=== PATIENT | male | born 1965 | race Caucasian/White ===

== ENCOUNTER → 2021-02-06 08:25 | Outpatient (BNVA) | payer BC, SELFPAY | PROVIDERS: Visit Provider Internal Medicine | DX: Z12.11 Encounter for screening for malignant neoplasm of colon (principal); K21.9 Gastro-esophageal reflux disease without esophagitis | CPT/HCPCS: 80053; 80061; 84153; 85025 ==

== ENCOUNTER → 2021-08-04 09:47 | Outpatient (BNVA) | payer BC, SELFPAY | PROVIDERS: PCP Internal Medicine; Visit Provider Internal Medicine | DX: Z01.89 Encounter for other specified special examinations (principal) | CPT/HCPCS: 80323 ==

== ENCOUNTER → 2023-05-09 09:23 | Outpatient (BNVA) | payer BC, SELFPAY | PROVIDERS: PCP Family Medicine; Visit Provider Family Medicine | DX: Z76.89 Persons encountering health services in other specified circumstances (principal); K21.9 Gastro-esophageal reflux disease without esophagitis; I47.1 Supraventricular tachycardia; E83.52 Hypercalcemia; Z12.5 Encounter for screening for malignant neoplasm of prostate | CPT/HCPCS: 80053; 80061; 82306; 82607; 82746; 83036; 84443; 85025; G0103 ==

== ENCOUNTER 2024-12-19 12:25 | Emergency (ER) | payer BC, SELFPAY ==
[2024-12-19] VITALS (7 sets, daily range): BP systolic 130–155; BP diastolic 66–92; PULSE 62–84; RESP 16; TEMP 36.7; O2SAT 97–100; BMI 24.3
--- NOTE | 2024-12-19 12:33 | ECG_ITS ---
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 Measurements Intervals [place] Rate: 85 P: 58 OK: 129 QRS: 72 QRSD: 84 T: 51 QT: 347 QTc: 413 Interpretive Statements SINUS RHYTHM No previous ECG available for comparison Electronically Signed On 12-19-2024 19:26:44 [employer] by Tre Mcdaniels M.D. [email or web address]
--- NOTE | 2024-12-19 12:55 | CTR_ITS ---
PROCEDURE INFORMATION: Exam: CTA Abdomen and Pelvis With Contrast Exam date and time: 12/19/2024 1:36 PM Age: 59 years old Clinical indication: Other: R/O aortic dissection, cp, thoracic back pain TECHNIQUE: Imaging protocol: Computed tomographic angiography of the abdomen and pelvis with contrast. Exam focused on the arteries. 3D rendering (Not supervised by radiologist): MIP and/or 3D reconstructed images were created by the technologist. Radiation optimization: All CT scans at this facility use at least one of these dose optimization techniques: automated exposure control; mA and/or kV adjustment per patient size (includes targeted exams where dose is matched to clinical indication); or iterative reconstruction. Contrast material: OMNI 350; Contrast volume: 100 ml; Contrast route: INTRAVENOUS (IV); COMPARISON: CR (CHEST, ) 12/19/2024 1:01 PM RADIATION DOSE METRICS: Total DLP (mGy-cm): 967.16 FINDINGS: Aorta: No aortic aneurysm. No aortic dissection. Celiac trunk and mesenteric arteries: No occlusion or significant stenosis. Renal arteries: No occlusion or significant stenosis. Right iliac arteries: No occlusion or significant stenosis. Left iliac arteries: No occlusion or significant stenosis. Liver: No mass. Gallbladder and biliary ducts: Unremarkable. No calcified stones. No ductal dilation. Pancreas: Unremarkable. No mass. No ductal dilation. Spleen: Unremarkable. No splenomegaly. Adrenal glands: Unremarkable. No mass. Kidneys and ureters: Unremarkable. No solid mass. No hydronephrosis. Stomach and bowel: Unremarkable. No obstruction. No mucosal thickening. Appendix: No evidence of appendicitis. Intraperitoneal space: Unremarkable. No free air. No significant fluid collection. Lymph nodes: Unremarkable. No enlarged lymph nodes. Urinary bladder: Unremarkable. No mass. Reproductive: Unremarkable as visualized. Bones/joints: No acute fracture. Soft tissues: Unremarkable. CT/[facility] [id number] IMPRESSION: Unremarkable CTA.
--- NOTE | 2024-12-19 12:55 | XRR_ITS ---
PROCEDURE INFORMATION: Exam: XR Chest Exam date and time: 12/19/2024 1:01 PM Age: 59 years old Clinical indication: Chest pressure; Chest pain; Additional info: Chest painsind TECHNIQUE: Imaging protocol: Radiologic exam of the chest. Views: 1 view. COMPARISON: No relevant prior studies available. FINDINGS: Lungs: Unremarkable. No consolidation. Pleural spaces: Unremarkable. No pleural effusion. No pneumothorax. Heart/Mediastinum: Unremarkable. No cardiomegaly. Bones/joints: Unremarkable. XR/XR chest 1V portable [id number] IMPRESSION: No acute findings.
[2024-12-19 13:11] LABS: Basophils % 0.4 %; Eosinophils # 0.1 10^3/uL (0.0-0.8); Eosinophils % 0.9 %; Hematocrit 38.7 % (37-53); Lymphocytes # 1.6 10^3/uL (0.8-4.8); Lymphocytes % 20.4 %; Mean Corpuscular HGB Conc 34.1 g/dL (30-55); Mean Corpuscular Hemoglobin 31.5 pg (27-33); Mean Corpuscular Volume 92.4 fl (82-101); Monocytes # 0.6 10^3/uL (0.2-0.9); Monocytes % 7.1 %; Neutrophils % 70.7 %; Nucleated Red Blood Cells % 0 %; Platelet Count 303 10^3/cmm (157-399); Red Blood Count 4.19 10^6/uL (3.85-5.65); Red Cell Distribution Width 11.8 % (12.1-15.1); White Blood Count 8.05 10^3/uL (3.29-11.43)
[2024-12-19 13:22] LABS: Troponin(5th) Baseline 7 ng/L (0-15)
--- NOTE | 2024-12-19 13:31 | PC.NURSE ---
pt refused morphine saying it wasn't needed.
[2024-12-19 13:32] LABS: Alanine Aminotransferase 20 U/L (0-41); Albumin Level 4.5 g/dL (3.5-5.2); Alkaline Phosphatase 116 U/L (40-130); Anion Gap 15.6 (5-19); Aspartate Amino Transferase 18 U/L (0-40); Blood Urea Nitrogen 13 mg/dL (8-23); Calcium 9.4 mg/dL (8.5-10.5); Carbon Dioxide 23 mmol/L (22-29); Chloride 100 mmol/L (98-107); Creatinine Clr Calc Pharmacy 81.9015; Globulin 2.3 g/dL (1.3-4.6); Glucose 110 mg/dL (65-115); Lipase 33 U/L (13-60); NT Pro B Type Natriuretic Pept 92 pg/mL (0-125); Osmolality Calculated 281 mOsm/kg (285-295); Potassium 3.6 mmol/L (3.5-5.1); Sodium 135 mmol/L (136-145); Total Bilirubin 0.4 mg/dL (0.15-1.2); Total Protein 6.8 g/dL (6.6-8.7)
[2024-12-19] MEDS: iohexol 350 mg/mL 500 mL Btl (per mL) IV (13:38)
--- NOTE | 2024-12-19 14:30 | ED_ITS ---
HPI - Chest Pain 2 General: Chief Complaint: Chest Pain Stated Complaint: HIgh BP/chest pain Time Seen by Provider: 12/19/24 12:38 History of Present Illness: This patient is a 59-year-old white male who presents to the emergency department stating that he had developed chest pain at 11:45 PM last night. The pain has subsided now. States his blood pressure has been running quite high as well. He did get recordings of 180/90. He is currently having some pain in the center of his back. When he had the chest pain that did radiate down the left arm. He did take aspirin last night and this morning. Patient does take atenolol for palpitations and high blood pressure. States he has a history of mitral valve prolapse. He does not smoke. Related Data Previous Rx's ?Medication ?Instructions ?Recorded atenolol 25 mg tablet 25 mg PO DAILY #90 tabs 12/0 01/01 lisinopril 10 1 tab PO DAILY #30 tabs 03/ 8/25 mg-hydrochlorothiazide 12.5 mg tablet Allergies Allergy/AdvReac Type Severity Reaction Status Date / Time No Known Allergies Allergy Verified 01/21/24 10:58 Review of Systems 2 General: Reports: 10 or more systems reviewed and unremarkable except in HPI and below Card: Reports: chest pain Musc: Reports: back pain PFSH ED 2 PFSH: Medical History (Updated 12/19/24 @ 15:46 by Sreekanth Pino MD) GERD (gastroesophageal reflux disease) Supraventricular tachycardia Family History Mother Hypertension Social History Smoking and tobacco/nicotine status: former use of tobacco/nicotine Second hand smoke exposure: No Alcohol intake: never Substance/Drug Use: never Adopted: No Caregiver/support person: No Lives independently: Yes service: No Current gender identity: Male Physical Exam 2 Const: COMMON NORMALS: no acute distress, patient oriented x3 and no limitations GENERAL APPEARANCE: cooperative and comfortable HENMT: COMMON NORMALS: normocephalic, atraumatic, Normal nasal mucous membranes and turbinates present, moist oral mucous membranes and oropharynx normal HEAD & SCALP: normal to inspection, normocephalic and atraumatic F KIKA & SINUS: normal facial exam NOSE: Normal nasal mucous membranes and turbinates present Eye: COMMON NORMALS: Equal, round and reactive pupils present, EOMs intact bilaterally and conjunctivae normal GENERAL EYE: appearance normal, both eyes and all related structures CONJUNCTIVA: Yes conjunctivae normal PUPIL: Yes Equal, round and reactive pupils present Neck/C-Spine: COMMON NORMALS: supple and no JVD Chest: COMMONS NORMALS: normal inspection of the chest Resp: COMMON NORMALS: normal respiratory effort and clear to auscultation bilaterally AUSCULTATION: clear to auscultation bilaterally Cardio: COMMON NORMALS: no JVD, regular rate, regular rhythm, No gallops present (Cardio), No murmurs present (Cardio) and No rub (Cardio) RATE: r egular rate RHYTHM: regular rhythm GI: COMMON NORMALS: Normal to inspection, nondistended, normoactive bowel sounds present, Soft to palpation and non-tender AUSCULTATION: Yes normoactive bowel sounds PALPATION: Yes Soft to palpation : COMMON NORMALS: Yes no CVA tenderness BLADDER/KIDNEY EXAM: Yes no CVA tenderness Back/Pelvis: COMMON NORMALS: no CVA tenderness and thoracic and lumbar spine normal to inspection Extremity: COMMON NORMALS: normal to inspection Neuro: COMMON NORMALS: patient oriented x3 and CN's II-XII intact bilaterally Psych: COMMON NORMALS: mental status grossly normal, Normal thought process present and cooperative THOUGHT PROCESS: Normal thought process present Skin: COMMON NORMALS: no rashes or lesions noted, turgor normal and no jaundice GENERAL SKIN EXAM: no rashes or lesions noted and turgor normal Course 2 Vital Signs: Vital signs: Vital Signs Temperature 98.1 F 12/19/24 12:29 Pulse Rate 71 12/19/24 15:00 Respiratory Rate 16 12/19/24 12:29 Blood Pressure 130/78 12/19/24 15:00 Pulse Oximetry 100 12/19/24 15:00 Oxygen Delivery Me thod Room Air 12/19/24 15:00 MDM - Chest Pain Medical Decision Making Patient was given morphine and Zofran. His EKG revealed normal sinus rhythm with no ST segment abnormalities. Chest x-ray was normal. CT angiogram of the chest abdomen pelvis was read by the radiologist as normal. CBC and CMP normal. Lipase normal at 33. BNP was normal at 92. Baseline troponin was 7 with a 2- hour level of 7. Patient's blood pressure came down to 130/78. He is asymptomatic. All of the results were discussed with him and his . His hypertension could certainly have been causing some angina. I recommended he follow-up with his primary care provider and have them order a cardiac stress test. I also placed him on 10 mg of lisinopril and 12.5 mg of hydrochlorothiazide for his hypertension. Recommended he continue the atenolol. Recommended he check his blood pressure 3 times per day and take those results into his doctor's office in about a week so they can manage his blood pressure appropriately. He was discharged in stable condition. Lab Data 12/19/24 12:52 12/19/24 12:52 Radiology Impressions Chest X-Ray 12/19/24 12:55 IMPRESSION: No acute findings. Chest/Abdomen/Pelvis CTA 12/19/24 12:55 IMPRESSION: Unremarkable CTA. Laboratory Results WBC 8.05 10^3/uL (3.29-11.43) 12/19/24 12:52 RBC 4.19 10^6/uL (3.85-5.65) 12/19/24 12:52 Hgb 13.20 g/dL (11.27-16.99) 12/19/24 12:52 Hct 38.7 % (37-53) 12/19/24 12:52 MCV 92.4 fl (82-101) 12/19/24 12:52 MCH 31.5 pg (27-33) 12/19/24 12:52 MCHC 34.1 g/dL (30-55) 12/19/24 12:52 RDW 11.8 % (12.1-15.1) L 12/19/24 12:52 Plt Count 303 10^3/cmm (157-399) 12/19/24 12:52 MPV 10.0 fL (7.4-10.4) 12/19/24 12:52 Neut % (Auto) 70.7 % 12/19/24 12:52 Lymph % (Auto) 20.4 % 12/19/24 12:52 Latimer % (Auto) 7.1 % 12/19/24 12:52 Eos % (Auto) 0.9 % 12/19/24 12:52 Baso % (Auto) 0.4 % 12/19/24 12:52 Neut # (Auto) 5.70 10^3/uL (1.8-7.7) 12/19/24 12:52 Lymph # (Auto) 1.6 10^3/uL (0.8-4.8) 12/19/24 12:52 Latimer # (Auto) 0.6 10^3/uL (0.2-0.9) 12/19/24 12:52 Eos # (Auto) 0.1 10^3/uL (0.0-0.8) 12/19/24 12:52 Baso # (Auto) 0.0 10^3/uL (0.0-0.1) 12/19/24 12:52 Nucleated RBC % (auto) 0 % 12/19/24 12:52 Nucleated RBCs # 0.0 /100WBC 12/19/24 12:52 Sodium 135 mmol/L (136-145) L 12/19/24 12:52 Potassium 3.6 mmol/L (3.5-5.1) 12/19/24 12:52 Chloride 100 mmol/L (98-107) 12/19/24 12:52 Carbon Dioxide 23 mmol/L (22-29) 12/19/24 12:52 Anion Gap 15.6 (5-19) 12/19/24 12:52 BUN 13 mg/dL (8-23) 12/19/24 12:52 Creatinine 1.0 mg/dL (0.7-1.2) 12/19/24 12:52 GFR Calculation 76.0 mL/min (90-130) L 12/19/24 12:52 Glucose 110 mg/dL (65-115) 12/19/24 12:52 Calculated Osmolality 281 mOsm/kg (285-295) L 12/19/24 12:52 Calcium 9.4 mg/dL (8.5-10.5) 12/19/24 12:52 Total Bilirubin 0.4 mg/dL (0.15-1.2) 12/19/24 12:52 AST 18 U/L (0-40) 12/19/24 12:52 ALT 20 U/L (0-41) 12/19/24 12:52 Alkaline Phosphatase 116 U/L (40-130) 12/19/24 12:52 Troponin T Baseline 7 ng/L (0-15) 12/19/24 12:52 Troponin T 120 Minute 6.69 ng/L (0-15) 12/19/24 14:48 Delta Troponin T -0.31 ABS# (0-10) L 12/19/24 14:48 NT-Pro-B Natriuret Pep 92 pg/mL (0-125) 12/19/24 12:52 Total Protein 6.8 g/dL (6.6-8.7) 12/19/24 12:52 Albumin 4.5 g/dL (3.5-5.2) 12/19/24 12:52 Globulin 2.3 g/dL (1.3-4.6) 12/19/24 12:52 Lipase 33 U/L (13-60) 12/19/24 12:52 All radiology interpretation(s) finalized by discharge Discharge Plan Discharge Patient Disposition: Home Clinical Impression: Chest pain Qualifiers: Chest pain type: unspecified Qualified Code(s): R07.9 - Chest pain, unspecified Hypertension Qualifiers: Hypertension type: primary hypertension Qualified Code(s): I10 - Essential (primary) hypertension Condition: Stable Prescriptions: New lisinopril-hydrochlorothiazide 10-12.5 mg tablet 1 tab PO DAILY Qty: 30 0RF No Action atenolol 25 mg tablet 25 mg PO DAILY Qty: 90 3RF Discharge Orders: Discharge ED (Routine); Ordered 12/19/24 Ordered By: Sreekanth Pino Referrals: Melvin Petty DO [Primary Care Provider] - Patient Instructions: Hypertension, Chest Pain (DC) Activity Restrictions/Additional Instructions: Check your blood pressure 3 times per day and record the results. Follow-up with your primary care provider in about 1 week for ongoing management of your hypertension. You may also need a stress test scheduled. Print Language: French Coding Level of Care Code ED Rapid Outsole Stitcher for Warren Arzola
--- NOTE | 2024-12-19 15:00 | ECG_ITS ---
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 Measurements Intervals [place] Rate: 63 P: 5 WA: 150 QRS: -12 QRSD: 94 T: 7 QT: 398 QTc: 408 Interpretive Statements SINUS RHYTHM POSSIBLE RIGHT VENTRICULAR CONDUCTION DELAY [RSR (QR) IN V1/V2] VOLTAGE CRITERIA FOR LVH [MEETS CRITERIA IN ONE OF: R(aVL), S(V1), R(V5), R(V5/V6)+S(V1)] Compared to ECG 12/19/2024 12:33:58 Left ventricular hypertrophy now present Electronically Signed On 12-19-2024 19:26:16 DIRECTOR INPATIENT HEADACHE PROGRAM by Tre Mcdaniels M.D. [email or web address]
[2024-12-19 15:12] LABS: Troponin 5 2HR 6.69 ng/L (0-15)
[2024-12-19 15:13] LABS: Troponin 5 2HR Delta -0.31 ABS# (0-10)
== END 2024-12-19 16:30 | disposition home or self-care (01) ==
PROVIDERS: Emergency Provider Emergency Medicine; PCP Family Medicine
DX: R07.9 Chest pain, unspecified (principal); I10 Essential (primary) hypertension; Z87.891 Personal history of nicotine dependence
CPT/HCPCS: 36415; 71045; 71275; 74174; 80053; 83690; 83880; 84484; 85025; 93005; 99285